=== PATIENT | female | born 1965 | race Caucasian/White ===

== ENCOUNTER 2025-04-29 10:09 | Emergency (ER) | payer SELFPAY ==
[2025-04-29] MEDS ORDERED: predniSONE 20 MG TAB ONE (10:54)
== END 2025-04-29 11:21 | disposition home or self-care (01) ==
LOC: BURERS 10:09
DX: L25.9 Unspecified contact dermatitis, unspecified cause (principal)
CPT/HCPCS: 99283; J7512